=== PATIENT | female | born 1945 | race Caucasian/White ===

== ENCOUNTER → 2017-03-06 | Outpatient (CLI) | payer OTHER | LOC: RAD 01:28 | DX: Z12.31 Encounter for screening mammogram for malignant neoplasm of breast (principal) ==

== ENCOUNTER → 2018-03-07 | Outpatient (CLI) | payer OTHER | LOC: RAD 03:16 | DX: Z12.31 Encounter for screening mammogram for malignant neoplasm of breast (principal) ==

== ENCOUNTER → 2018-08-09 | Outpatient (CLI) | payer OTHER | LOC: MRI 09:18 | DX: M22.42 Chondromalacia patellae, left knee (principal); M71.22 Synovial cyst of popliteal space [Baker], left knee ==

== ENCOUNTER → 2019-03-10 | Outpatient (CLI) | payer OTHER | LOC: BC 11:00 | DX: Z12.31 Encounter for screening mammogram for malignant neoplasm of breast (principal) ==

== ENCOUNTER → 2019-05-29 | Outpatient (CLI) | payer OTHER | LOC: SJCVC 10:39 | DX: R94.31 Abnormal electrocardiogram [ECG] [EKG] (principal); I25.10 Atherosclerotic heart disease of native coronary artery without angina pectoris; I10 Essential (primary) hypertension; I65.23 Occlusion and stenosis of bilateral carotid arteries; E78.00 Pure hypercholesterolemia, unspecified; I25.2 Old myocardial infarction; M81.0 Age-related osteoporosis without current pathological fracture; Z90.49 Acquired absence of other specified parts of digestive tract; Z90.710 Acquired absence of both cervix and uterus; Z79.899 Other long term (current) drug therapy ==

== ENCOUNTER → 2019-12-18 | Outpatient (CLI) | payer OTHER | LOC: SJCVCIMAG 12-04 07:51 | PROVIDERS: ATTEND Internal Medicine | DX: I25.10 Atherosclerotic heart disease of native coronary artery without angina pectoris (principal); I10 Essential (primary) hypertension; I65.23 Occlusion and stenosis of bilateral carotid arteries; E78.2 Mixed hyperlipidemia; E78.00 Pure hypercholesterolemia, unspecified; R94.31 Abnormal electrocardiogram [ECG] [EKG]; Z88.8 Allergy status to other drugs, medicaments and biological substances ==

== ENCOUNTER → 2020-05-25 | Outpatient (CLI) | payer OTHER | LOC: BC 11:45 | PROVIDERS: ATTEND Family Medicine | DX: Z12.31 Encounter for screening mammogram for malignant neoplasm of breast (principal) ==

== ENCOUNTER → 2020-06-22 | Outpatient (CLI) | payer OTHER | LOC: SJCVC 10:26 | PROVIDERS: ATTEND Internal Medicine | DX: R94.31 Abnormal electrocardiogram [ECG] [EKG] (principal); R00.1 Bradycardia, unspecified; I25.10 Atherosclerotic heart disease of native coronary artery without angina pectoris; I10 Essential (primary) hypertension; I65.23 Occlusion and stenosis of bilateral carotid arteries; E78.2 Mixed hyperlipidemia; E78.00 Pure hypercholesterolemia, unspecified; M81.0 Age-related osteoporosis without current pathological fracture; M19.90 Unspecified osteoarthritis, unspecified site; Z79.82 Long term (current) use of aspirin; Z79.899 Other long term (current) drug therapy; Z72.89 Other problems related to lifestyle; Z91.040 Latex allergy status; Z88.1 Allergy status to other antibiotic agents ==

== ENCOUNTER → 2020-12-22 | Outpatient (CLI) | payer OTHER | LOC: SJCVCIMAG 07:29 | PROVIDERS: ATTEND Internal Medicine | DX: I08.1 Rheumatic disorders of both mitral and tricuspid valves (principal); I25.10 Atherosclerotic heart disease of native coronary artery without angina pectoris; I10 Essential (primary) hypertension; E78.5 Hyperlipidemia, unspecified; I65.23 Occlusion and stenosis of bilateral carotid arteries; E78.00 Pure hypercholesterolemia, unspecified; Z79.82 Long term (current) use of aspirin; Z72.89 Other problems related to lifestyle; Z79.899 Other long term (current) drug therapy; Z88.1 Allergy status to other antibiotic agents; Z91.040 Latex allergy status ==

== ENCOUNTER 2021-01-17 14:05 | Inpatient (IN) | payer OTHER ==
[~2021-01-17] VITALS: Ht 162.6 cm; Wt 62.1 kg
--- NOTE | ~2021-01-17 | EMS ---
[place] [id number] EMS Patient Care Report Name: ABDIAZIZ FREEMAN Room #: 434-P ADM IN M.R.#: [id number] Admission: 01/17/21 Attend Phys: Leeroy Wheatley, Discharge: Date of : 41 Report #: [id number] THIS REPORT FOR: //name// Report Transmitted: 01/18/2021 15:01 EMS Care Summary [place], [place]/[facility] Incident [id number] @ 01/17/2021 13:16 Incident Location [id number] [place] [address] Patient ABDIAZIZ FREEMAN Female, 75 Years 1945 Patient Address [address] [place] [address] Patient History Myocardial Infarction (MT), Patient Allergies Latex allergy, Patient Medications Unknown, Chief Complaint ankle pain Disposition Transported No Lights/[place] Dispatch Reason Falls Transported To [facility] Narrative M36 dispatched on a fall. M36 arrived to find PT laying on ground inside of room in home. PT stated left ankle pain as chief complaint. PT stated she tripped and fell. PT denied loss of consciousness. PT denied head, neck and back pain. PT left ankle had obvious deformity. PT ankle splinted [place] [address] EMS Patient Care Report Name: ABDIAZIZ FREEMAN Room #: 434-P [facility] IN [facility]#: [id number] Admission: 01/17/21 Attend Phys: Leeroy Wheatley, Discharge: Date of : 41 Report #: [id number] IV access and pain control protocol followed by Stadium Manager Stalker. PT denied being on blood thinners. PT stated "I usually take a baby aspirin every day, but I am not right now because of an upcoming surgery for my eyelid." PT rolled onto [place] trolley wire installer by EMS and fire personnel. PT carried out of home and placed on stretcher. PT secured with seatbelts and blanket. Surgical mask placed on PT. PT vitals monitored during transport. PT report given. PT moved to hospital bed by four person sheet lift. PT care and belongings transferred to ER staff at [facility] without incident. M36 placed back in service. Appended: Drug box 435 Blue Tag #[id number] Initial Vitals @13:23P: 58,R: 18,BP: 136/74,Pain: 8/10,GCS: 15,SpO2: 98,Revised Trauma: 12, @13:45P: 62,R: 16,BP: 116/54,Pain: 6/10,GCS: 15,SpO2: 100,Revised Trauma: 12, @13:50P: 60,R: 14,BP: 104/50,Pain: 1/10,GCS: 15,SpO2: 98,Revised Trauma: 12, Assessments @13:56MENTAL:Place Oriented,Event Oriented,Person Oriented,Time Oriented,SKIN:HEENT:LUNG SOUNDS:ABDOMEN:PELVIS//GI:EXTREMITIES:Left Leg: Other,Left Leg: Edema,PULSE:Radial: 2+ Normal,NEURO: Impression Injury of Ankle Procedures @13:23 ALS Assessment Response: UnchangedSucceeded @13:39 Zofran - 4 Milligrams (mg) - Oral Response: Unchanged @13:40 IV Therapy - Saline Lock 30cc (20 ga) Site: Hand-Right Response: UnchangedSucceeded @13:42 Fentanyl - 50 Micrograms (mcg) - Intravenous (IV) Response: Improved @13:49 Fentanyl - 50 Micrograms (mcg) - Intravenous (IV) Response: Improved @13:37 Splint Fx/Disloc. Response: UnchangedSucceeded Timeline 13:14,Call Received 13:14,Dispatch Notified 13:16,Dispatched 13:17,En Route 13:21,On Scene 13:22,At Patient 13:23,ALS Assessment,Response: UnchangedSucceeded, 13:23,BP: 136/74 M,PULSE: 58,RR: 18 R,SPO2: 98 Ox,ETCO2: ,BG: ,PAIN: 8,GCS: 15, 13:37,Splint Fx/Disloc.,Response: UnchangedSucceeded, 13:39,Zofran - 4 Milligrams (mg) - Oral,Response: Unchanged [address] [address] EMS Patient Care Report Name: LYDIAABDIAZIZ Quiros Room #: 434-P [facility] IN M.R.#: [id number] Admission: 01/17/21 Attend Phys: Leeroy Wheatley, Discharge: Date of : 41 Report #: [id number] 13:40,IV Therapy - Saline Lock 30cc 20 ga Site: Hand-Right,Response: UnchangedSucceeded, 13:42,Fentanyl - 50 Micrograms (mcg) - Intravenous (IV),Response: Improved 13:45,BP: 116/54 M,PULSE: 62,RR: 16 R,SPO2: 100 Ox,ETCO2: ,BG: ,PAIN: 6,GCS: 15, 13:49,Fentanyl - 50 Micrograms (mcg) - Intravenous (IV),Response: Improved 13:50,BP: 104/50 M,PULSE: 60,RR: 14 R,SPO2: 98 Ox,ETCO2: ,BG: ,PAIN: 1,GCS: 15, 13:51,Depart Scene 14:01,At Destination 14:13,Call Closed Disclaimer v1.1 Copyright 2020 [employer] This EMS Care Summary contains data elements from the applicable legal record (which may be displayed differently). It is designed to provide pertinent information for the following purposes: continuity of care, clinical quality, and state data reporting. The complete legal record is available to ED staff and administrators of the receiving hospital in [email or web address]'s Patient Tracker. All data is provided "as is."
[2021-01-17 14:06] VITALS: BP 126/70
[2021-01-17 17:19] LABS: ABSOLUTE NEUTROPHILS 3.6 thou/uL (1.4-8.2); BASOPHILS 0.8 % (0.0-2.0); EOSINOPHILS 2.4 % (0.0-3.0); HEMATOCRIT 36.9 % (37.0-47.0); HEMOGLOBIN 12.1 gm/dL (12.0-15.0); LYMPHOCYTES 28.9 % (24.0-44.0); MCH 32.8 pg (26.0-34.0); MCHC 32.9 g/dL (28.0-37.0); MCV 99.7 fL (80.0-100.0); MONOCYTES 6.2 % (1.0-8.0); PLATELET COUNT 145 thou/uL (150-400); POLYS 61.7 % (36.0-66.0); RDW 13.4 % (10.5-14.5); WBC 5.8 thou/uL (4.0-11.0)
[2021-01-17 17:25] LABS: CALCIUM 8.9 mg/dL (8.5-10.1); CREATININE 1.2 mg/dL (0.6-1.0); POTASSIUM 4.7 mmol/L (3.5-5.1)
[2021-01-17 19:30] VITALS: BP 126/48
[2021-01-17 20:13] VITALS: BP 122/99
[2021-01-17] MEDS ORDERED: PRINIVIL20 MG PO (23:10)
[2021-01-17] MEDS ORDERED: LIPITOR 40 MG T40 M1 PO (23:11)
[2021-01-17] MEDS ORDERED: CELEXA 20 MG TA20 MG PO (23:11)
[2021-01-17] MEDS ORDERED: NEURONTIN 300M300 M2 PO (23:14)
[2021-01-17] MEDS ORDERED: METOPROLOL SUCC50 MG PO (23:23)
--- NOTE | 2021-01-18 03:59 | NUR ---
PT ARRIVED FROM ER. A&OX4 LEFT FOOT DRESSING INTACT FROM CLOSE REDUCTION DONE IN THE ER. FALL PREC IN PLACE. LLE ELEVATED ON PILLOW AND ICE PACK PLACED. FENTALYN GIVEN FOR PAIN. PT NPO AT MIDNIGHT FOR SX TOMORROW. CALL LIGHT AT REACH AND WILL CONT TO MONITOR. ADDMISSION DONE AND PT ORIENTED TO THE UNIT.
[2021-01-18 04:05] VITALS: BP 125/49
[2021-01-18 05:33] LABS: INR 0.97; PROTIME 10.6 Seconds (10.5-12.1)
[2021-01-18 05:39] LABS: CALCIUM 8.5 mg/dL (8.5-10.1); CREATININE 1.1 mg/dL (0.6-1.0); POTASSIUM 4.3 mmol/L (3.5-5.1)
[2021-01-18 05:45] LABS: HEMATOCRIT 34.3 % (37.0-47.0); HEMOGLOBIN 11.4 gm/dL (12.0-15.0); MCHC 33.1 g/dL (28.0-37.0); MCV 99.5 fL (80.0-100.0); RBC 3.45 mil/uL (4.20-5.00); RDW 13.1 % (10.5-14.5); WBC 7.1 thou/uL (4.0-11.0)
[2021-01-18 07:01] VITALS: BP 150/71
--- NOTE | 2021-01-18 07:36 | EKG ---
[address] [address] ELECTROCARDIOGRAM REPORT Name: EVERARDO FREEMANARON Quiros Room #: 434-P ADM IN M.R.#: [id number] Admission: 01/17/21 Attend Phys: Leeroy Wheatley, Discharge: Date of : 41 Report #: [id number] [facility] ED Test Date: 2021-01-17 Test Time: 16:19:08 Pat Name: ABDIAZIZ FREEMAN Department: Room: 434 Gender: F Flow Specialist: jeffrey : 1945 Requested By: Jarocho Soto Order Number: [id number] MD: Chung Ashford Measurements Intervals [place] Rate: 52 P: 70 MN: 119 QRS: 67 QRSD: 94 T: 43 QT: 446 QTc: 415 Interpretive Statements Sinus rhythm Borderline short MN interval Repol abnrm suggests ischemia, diffuse leads Compared to ECG 04/12/2006 07:16:59 Early repolarization now present Myocardial infarct finding no longer present T-wave abnormality no longer present Possible ischemia still present Electronically Signed On 01-18-2021 7:35:54 CDT by Chung Ashford [email or web address] <ELECTRONICALLY SIGNED> By: Chung Ashford MD, FACC 01/18/21 0735 1619 1619 Chung Ashford MD, [facility] /EPI
--- NOTE | 2021-01-18 09:01 | NUR ---
Chart review. Left ankle fracture. Npo today, possible going to surgery today. CM visited with dom and spouse jose at bedside. Intro to , dcp, home health and rehab. Prior to fall at home over rug mat which has been moved to the basement, that was 1st fall and last. 2 steps enter home, 10 steps with left side handrail to basement for laundry. Jose will be doing laundry for now. Manage own medication, have cane, walker and shower bench. Still dive little to chair mender and doctor appointments per dom Also have knee scooter if needed that was my daughters when she broke her ankle per dom. Anticipate she will need hh or rehab at mt, will cont following as needed for mt needs.
--- NOTE | 2021-01-18 14:08 | NUR ---
ASSUMED PT CARE THIS AM. PT A&OX4, ABLE TO MAKE NEEDS KNOWN. PATIENT REPORTING PAIN MANAGED WITH MEDICATIONS GIVEN PER EMAR. IV REMAINS PATENT. DRESSING TO LEFT ANKLE IS INTACT. PATIENT HAS A MCCLAIN CATHETER IN PLACE. PATIENT REMAINS ON ROOM AIR. PATIENT REMAINS NPO FOR SURGERY. FAMILY MEMBER AT BEDSIDE. FALL PRECAUTIONS ARE IN PLACE, CALL LIGHT WITHIN REACH.
[2021-01-18 18:26] VITALS: BP 138/65
[2021-01-18 20:09] VITALS: BP 137/57
--- NOTE | 2021-01-19 01:22 | NUR ---
ASSESSED AT START OF SHIFT. PT C/O PAIN. IV PAIN MEDICATION GIVEN. A&OX3 LLE ELEVATED ON PILLOWS. IV INTACT AND FLUIDS INFUSING. FALL PREC IN PLACE AND CALL LIGHT AT REACH WILL CONT TO MONITOR.
[2021-01-19 04:34] VITALS: BP 125/54
[2021-01-19 08:05] VITALS: BP 123/56
--- NOTE | 2021-01-19 09:12 | O ---
[facility] [place] [address] OPERATIVE REPORT Name: ABDIAZIZ FREEMAN Room #: 434-P [facility] IN M.R.#: [id number] Admission: 01/17/21 Attend Phys: Leeroy Wheatley, Discharge: Date of : 41 Report #: [id number] THIS REPORT FOR: cc: Tay Plaza MD, Rene P. MD McCabe, Michael P. MD ~ DATE OF SERVICE: 01/18/2021 SERVICE: Orthopedics. FACILITY: [place]. SURGEON: Jax Webb MD SUPERVISOR HARDBOARD: Rebecca Thompson NP INDICATIONS FOR SUPERVISOR HARDBOARD: Assistance with exposure, retraction, provisional and definitive fixation and wound closure as well as splint application. PREOPERATIVE DIAGNOSES: 1. Fracture dislocation, left ankle. 2. Closed left bimalleolar ankle fracture. 3. Status post fall. POSTOPERATIVE DIAGNOSES: 1. Fracture dislocation, left ankle. 2. Closed left bimalleolar ankle fracture. 3. Status post fall. PROCEDURE: Open reduction and internal fixation, left bimalleolar ankle fracture dislocation with fixation of both medial and lateral sides. ANESTHESIA: General with regional. COMPLICATIONS: None. DRAINS: None. SPECIMENS: None. ESTIMATED BLOOD LOSS: 2 mL. FINDINGS: Robles and Nephew 2.7 mm lateral distal fibular locking plate with 4.0 cannulated screws medially measuring 44 and 34 mm. HISTORY: The patient is a 75-year-old female who took a fall at home resulting [facility] [address] [place] [address] OPERATIVE REPORT Name: ABDIAZIZ FREEMAN Room #: 434-P ADM IN M.R.#: [id number] Admission: 01/17/21 Attend Phys: Leeroy Wheatley, Discharge: Date of : 41 Report #: [id number] in a significant injury to her left ankle. She was admitted to the hospital after undergoing closed reduction in the Emergency Room at [facility]. She is indicated for surgical treatment. Risks, benefits, alternatives and indications for surgery were discussed with her and her at the bedside preoperatively. They gave full informed consent and wished to move forward. Risks include but are not limited to pain, bleeding, infection, injuring nerves or blood vessels, malunion, nonunion, need for further surgery including hardware removal and revision as well as complications related to anesthesia. Despite the risks, she wished to proceed. PROCEDURE IN DETAIL: After the left lower extremity was correctly identified in the preoperative holding area as the operative extremity, the patient underwent regional nerve block. She was then taken to the operating room, where general anesthesia was induced without complication. She was padded appropriately. Prophylactic antibiotics were administered in appropriate time. Tourniquet was applied to the left lower extremity, which was then prepped and draped in standard sterile fashion. Timeout procedure was performed. Esmarch was used. Tourniquet inflated to 250 mmHg. Standard lateral approach was made to the distal fibula. There was significant soft tissue injury present down to bone. The traumatic soft tissue dissection was followed down to the bone and then the fracture was visualized, gapped and debrided of hematoma and irrigated. Rongeur was used to debride the hematoma from within the joint as well as irrigate the joint as well. Provisional fixation was achieved with anatomic reduction of the cortical keys, and then an interfragmentary lag screw was placed in a posterior to anterior fashion based on the orientation of the fracture. Good compression was achieved across the fracture plane. Then, we used a Robles and Nephew 2.7 mm distal fibular locking plate as a neutralization plate laterally. Combination of locking and nonlocking screws were then used to obtain the optimal fixation. Based on the size of her fibula, we had to go with a smaller 2.7 plate as this fit her better and I was happy with the stability of the lag screw and the plate was working purely in a neutralization mode as stated. C-arm was then used after the final screws were placed to confirm appropriate hardware position. We did switch out one proximal screw to a locking screw to achieve better proximal fixation and one distal screw to a shorter screw as it appeared to be slightly long in the distal fibula. This wound was irrigated. Skin was closed with 2-0 Vicryl and 3-0 nylon. There was a medial abrasion from likely a decubitus injury to the soft tissues from the medial tibial spike pressing on the skin from underneath since the time of the fall until the closed reduction had been achieved, but there was no open wound, but I did orient the skin incision in an oblique fashion posterior to this wound, so as to not cut through the damaged soft tissue. Full-thickness skin flaps were developed. A branch of the saphenous vein was identified and [address] [address] OPERATIVE REPORT Name: ABDIAZIZ FREEMAN Room #: 434-P [facility] IN M.R.#: [id number] Admission: 01/17/21 Attend Phys: Leeroy Wheatley, Discharge: Date of : 41 Report #: [id number] ligated, and then the main saphenous vein was retracted. The hematoma was cleared. The medial side of the joint was irrigated and debrided and then manual provisional fixation was achieved with visual confirmation of anatomic reduction. I used 2 K-wires to advance across the fracture in a perpendicular fashion and then checked x-ray to assess the provisional fixation. I was happy with the anatomic reduction and then overdrilled and then placed cannulated partially-threaded Robles and Nephew 4.0 mm steel screws measuring 44 anteriorly and 34 mm posteriorly. Excellent purchase was achieved. I used x-ray to confirm satisfactory position of the screws and then took final x-rays. The wounds were irrigated. Skin was again closed with 2-0 Vicryl and 3-0 nylon medially. A Xeroform dressing was applied followed by a well-padded short-leg splint. POSTOPERATIVE PLAN: She will be nonweightbearing for 6 weeks. We will take the stitches out at 2 weeks, put her in a cast for an additional 4 weeks and then at the 6-week point, we will transition to a weightbearing Cam walker boot. <ELECTRONICALLY SIGNED> By: Jax Webb MD 01/19/21 0912 1641 1746 Jax Webb MD /dominick
--- NOTE | 2021-01-19 09:15 | NUR ---
REBEL visited with dom at bedside, re-education on rehab, acute and skilled. Education on hh. She is nwb left lower ext, since surgery, would need to use knee scooter with training. She would rather stay here for rehab if she could per dom.
--- NOTE | 2021-01-19 11:35 | NUR ---
ASSUMED PT CARE THIS AM. PT IS ALERT & ORIENTED X4. PT HAS IV SITE ON L HAND RUNNING NS @60ML/HR. PT IS ON ROOM AIR. REMOVED MCCLAIN CATH THIS AM PER DR GONCALVES. PT RATED PAIN 1/10 ON L ANKLE. GIVEN PAIN MEDICATION PRIOR WORKING WITH PHYSICAL THERAPY. PT ON THE CHAIR AND ELEVATED LLE WITH PILLOWS. NON WEIGHT BEARING ON LLE. PT AT THE BEDSIDE. PT TOLERATED DIET AND MEDICATIONS WELL THIS AM. WILL CONTINUE TO MONITOR PT. FOLLOW POC.
[2021-01-19 15:30] VITALS: BP 155/75
[2021-01-19 17:22] VITALS: BP 117/49
[2021-01-19 19:04] VITALS: BP 145/46
--- NOTE | 2021-01-19 23:22 | NUR ---
ASSESSED AT START OF SHIFT. PT RESTING IN BED EVENING MEDS AND PAIN MEDS GIVEN. UP WITH ASSISX1 TO THE BSC. IV INTACT AND FLUIDS INFUSING. LLE ELEVATED. PT ON fall PREC IN PLACE AND CALL LIGHT AT REACH WILL CONT TO MONITOR.
[2021-01-20 04:55] VITALS: BP 127/50
[2021-01-20 07:10] VITALS: BP 123/46
--- NOTE | 2021-01-20 10:36 | NUR ---
ASSUMED PT CARE THIS AM. PT IS ALERT & ORIENTED X4. PT HAS IV SITE ON L HAND RUNNING NS @60ML/HR. ELEVATED LLE WITH 3 PILLOWS ABOVE LEVEL OF THE HEART. PT IS NON WEIGHT BEARING ON LLE. PT IS ON ROOM AIR. PT TOLERATED DIET AND MEDICATION WELL. GIVEN PAIN MEDICATION PRIOR WORKING WITH PHYSICAL THERAPY. WILL CONTINUE TO MONITOR PT. FOLLOW POC.
--- NOTE | 2021-01-20 10:57 | NUR ---
Not met for 5n requirements. Spoke with [facility] admission office, they requested more information on how long she will be nwb to lle. Faxed updates to [facility] skilled. Asif provided update to dom and will cont following as needed for dc needs.
[2021-01-20 15:55] VITALS: BP 120/40
[2021-01-20 19:01] VITALS: BP 117/51
--- NOTE | 2021-01-21 01:30 | NUR ---
ASSUMED CARE OF PT AT 1900, BEDSIDE REPORT RECIEVED. SIRI ASSESSMENT COMPLETE. MEDS ADMINISTERED INDICATED PER MAR. LLE NWB X 6 WEEKS AND IN HARD CAST C EUSEBIO WRAP. IVF RUNNING ORDERED. RESECURED L HAND PIV. LLE ELEVATED ON 3 PILLOWS ABOVE LEVEL OF HEART. UP TO BSC X1 C WALKER. REFILLED ICE WATER. ALL NEEDS MET. HOURLY ROUNING CONTINUING. CALL LIGHT IN REACH
[2021-01-21 02:18] VITALS: BP 155/70
[2021-01-21 07:30] VITALS: BP 145/66
--- NOTE | 2021-01-21 09:53 | NUR ---
Hospitalist completed letter for [facility] skilled rehab, faxed back to [facility].
--- NOTE | 2021-01-21 11:24 | NUR ---
A/O X 4. ROOM AIR. STAND BY ASSIST WITH WALKER. NON WEIGHT BEARING LEFT ANKLE. NS @ 60 MLS/HR. POSSIBLE D/C TO [facility] TODAY. EUSEBIO WRAP TO LEFT ANKLE AND FOOT. NO PAIN NOTED RIGHT NOW.
[2021-01-21] MEDS ORDERED: XARELTO10 MG PO (11:36)
[2021-01-21] MEDS ORDERED: HYDROCODON-ACE1 EAC7 PO (11:38)
[2021-01-21] MEDS ORDERED: MIRALAX17 GM PO (11:40)
[2021-01-21 11:45] VITALS: BP 145/66
--- NOTE | 2021-01-28 10:49 | HC ---
[facility] [place] [address] CONSULTATION Name: ABDIAZIZ FREEMAN Room #: 434-P [facility] IN M.R.#: [id number] Admission: 01/17/21 Attend Phys: Leeroy Wheatley, Discharge: 01/21/21 Date of : 41 Report #: [id number] THIS REPORT FOR: cc: Tay Plaza MD, Rene P. MD Smithson,Ta Harley MD ~ DATE OF SERVICE: 01/19/2021 HISTORY OF PRESENT ILLNESS: The patient is a 75-year-old white female who had a trip and fall sustaining a left bimalleolar fracture with dislocation. She underwent ORIF on 01/18/2021. She is limited to nonweightbearing on that left lower extremity for 6 weeks and then the plan would be 6 weeks of wearing a boot with weightbearing. We are seeing her in rehabilitation medicine consultation. PAST MEDICAL HISTORY: Includes Aviles's neuroma, D and C, tonsillectomy, arthritis, history of lumbar disk surgery. ALLERGIES: DUST, MOLD, PERFUME FOOD ALLERGIES MILK. No known drug allergies. MEDICATIONS: Please see the full medication listing. SOCIAL HISTORY: She lives with her in a house 2 steps in, did not utilize gait aids premorbidly. can assist her. REVIEW OF SYSTEMS: Did not offer any current complaints of chest pain, shortness of breath or abdominal discomfort. PHYSICAL EXAMINATION: GENERAL: A 75-year-old white female in no obvious distress. VITAL SIGNS: Last recorded temperature 36.6, pulse 71, respirations 18, blood pressure 123/56. The patient is alert, pleasant. HEENT: Appeared to be benign. NEUROLOGIC: Cranial nerves grossly intact. EXTREMITIES: She has functional range of motion of both upper extremities without obvious focal weakness. Functional range of motion of the right lower extremity without obvious focal weakness. Her left lower extremity she has the splint in place. She is unable to dorsiflex her toes and notes that the block is still present. She does have good sensation of that proximal left lower extremity. ASSESSMENT: A 75-year-old white female with the following problem list: 1. Left bimalleolar fracture, status post open reduction and internal fixation on 01/18/2021 nonweightbearing. 2. Prior history of back surgery. 3. Coronary artery disease. 4. Hypertension. [address] [address] CONSULTATION Name: EVERARDO FREEMANARON Quiros Room #: 434-P [facility] IN ..#: [id number] Admission: 01/17/21 Attend Phys: Leeroy Wheatley, Discharge: 01/21/21 Date of : 41 Report #: [id number] 5. Elevated lipids. 6. Gastroesophageal reflux disease. 7. History of Aviles's neuroma, left foot. PLAN: The patient unfortunately does not meet [address] inpatient rehabilitation criteria. We would need to look at other rehab therapy options as you are doing. Thank you for asking us to assist in this patient's care. <ELECTRONICALLY SIGNED> By: Ta Smith MD 01/28/21 1049 1119 2103 Ta Smith MD /nt
== END 2021-01-21 14:52 | DRG 493 ==
LOC: ER 14:05 → 4S 18:19 → EROBS 18:19 → 4S 19:47
PROVIDERS: Nurse Practitioner; Nurse Practitioner Family; ADMIT Surgery; ATTEND Surgery
DX: S82.852A Displaced trimalleolar fracture of left lower leg, initial encounter for closed fracture (principal); N17.9 Acute kidney failure, unspecified; Z20.822 Contact with and (suspected) exposure to COVID-19; M19.90 Unspecified osteoarthritis, unspecified site; I25.10 Atherosclerotic heart disease of native coronary artery without angina pectoris; I10 Essential (primary) hypertension; Z66 Do not resuscitate; K21.9 Gastro-esophageal reflux disease without esophagitis; F32.9 Major depressive disorder, single episode, unspecified; I25.2 Old myocardial infarction; Z86.711 Personal history of pulmonary embolism; Z90.49 Acquired absence of other specified parts of digestive tract; Z90.710 Acquired absence of both cervix and uterus; W18.39XA Other fall on same level, initial encounter; Y93.89 Activity, other specified; Y92.89 Other specified places as the place of occurrence of the external cause; Y99.8 Other external cause status
CPT/HCPCS: 10195; 50010; 50101; 50386; 51741; 56527; 56528; 57091; 57103; 57179; 58527; 58991; 59003; 59004; 59005; 59006; 59007; 59053; 59054; 59055; 59056; 62110; 62900; 70005